=== PATIENT | female | born 1945 | race Caucasian/White ===

== ENCOUNTER 2016-08-02 09:10 | Day surgery (SDC) | payer MEDICARE, OTHER ==
[2016-08-02] VITALS (7 sets, daily range): BP systolic 140–178; BP diastolic 66–75; PULSE 63–80; RESP 14–16; O2SAT 95–98
[~2016-08-02] VITALS: Ht 154.9 cm; Wt 91.0 kg
[~2016-08-02 09:10] MED LIST: 0.9% Sodium Chloride 1,000 ML IV PRN; AMLO5TAB2 PO; BETA1CAP PO; CALCIUM PO; MAGNESIUM PO; MULT-1018 PO; OMEG-86 PO; SIMV20TA4 PO; Sodium Chloride LOK Flush 10 mL Syringe IV PRN; fentaNYL-PF 50 mCg/mL 2 mL Inj IVPUSH PRN
--- NOTE | 2016-08-02 12:38 | ENDO ---
[address] [address] ENDOSCOPY PROCEDURE PATIENT: JARROD BISHOP : 1945 MR#: [id number] ADMIT: 08/02/2016 JOB ID: [id number] DATE: 08/02/2016 PRIMARY PROVIDER: Betina Bethea DO PROCEDURE: Esophagogastroduodenoscopy with biopsies and a colonoscopy. INDICATION: A 70-year-old female with a metallic taste in the mouth, chronic symptoms of intermittent reflux. Currently not taking any antisecretory medication. Updated upper endoscopy is pursued to evaluate for recurrence of esophagitis which was noted some 10 years ago. Last EGD in 2013 was rather unremarkable. She additionally has had a change in bowel habit with increasing tendency towards constipation and colonoscopy is therefore pursued. EQUIPMENT: GIF H 180 J and a PCF H 180 AL. SEDATION: Versed 8 mg and 125 mcg fentanyl. COMPLICATIONS: None identified. BOWEL PREPARATION: Fair at best. Copious amounts of irrigation and suction were required for today's exam. PROCEDURE INFORMATION: After the risks and benefits were explained, written and verbal informed consent was obtained. The patient was brought into the endoscopy suite and placed into the left lateral decubitus position. Sedation was achieved as above. The scope introduced into the mouth through the bite block and advanced to the second portion of the duodenum. The scope was slowly withdrawn to carefully examine the mucosa for any defects or lesions. Retroflexed views were accomplished in the stomach, the stomach was decompressed, and the scope removed the patient, who tolerated the procedure well. The patient was then turned around. A digital rectal examination accomplished. Mild internal external nonbleeding nonthrombosed hemorrhoids were noted. The scope was introduced into the rectum and advanced under direct visualization to the level of the cecum as identified by the appendiceal orifice and ileocecal valve. The scope was slowly withdrawn to carefully examine the mucosa for any defects or lesions. Multiple direct views were made through the dentate line for exclusion of pathology. The colon was decompressed and the scope removed the patient, who tolerated the procedure well. FINDINGS: 1. Duodenum: No significant mucosal pathology appreciated from the bulb through to the second portion. 2. Stomach: No outlet obstruction. No ulcers. No mass lesions. Mild diffuse gastropathy was seen throughout. Random biopsy was taken for exclusion of Helicobacter or other histopathology. Retroflexed views of the LES were otherwise unremarkable. 3. Esophagus: The squamocolumnar junction seemed to correlate with the top of the gastric folds. The GEJ was at about 40 cm from the incisors. There was perhaps a very subtle focus of inflammation right at the GEJ in the 6-7 o'clock location. This area was targeted for histopathologic analysis by a small biopsy. The remainder of the esophagus appeared unremarkable. 4. Colon: Tortuous course from rectum to cecum. I did not appreciate any significant polyps, mass lesions, or inflammatory features throughout. ENDOSCOPIC DIAGNOSES: 1. Gastropathy. 2. Subtle probable esophagitis. 3. Hemorrhoids. 4. Otherwise visually unremarkable colonoscopy. RECOMMENDATIONS: 1. Await histopathology. 2. If Helicobacter is found it will need to be eradicated with standard triple therapy. 3. The patient is encouraged to initiate the bowel regimen discussed in clinic. 4. The patient is again encouraged to trial a course of proton pump inhibitor to see if this attenuates her symptoms. 5. She will be brought back to GI Clinic to discuss her response in the next approximately six weeks or so.
--- NOTE | 2016-08-03 13:11 | PATH ---
SURGICAL PATHOLOGY Attending Physician:Roc Rooney CASE STATUS: Signed Out PATIENT NAME: JARROD BISHOP PID: [id number] : 1945 DATE COLLECTED:08/02/2016 22:20 SPECIMEN: 1: Gastric, Biopsy 2: Esophagus, Biopsy CLINICAL HISTORY: GERD, CONSTIPATION 1). GASTRIC BIOPSY, RULE OUT H.PYLORI 2). DISTAL ESOPHAGUS BIOPSY FINAL DIAGNOSIS: 1.GASTRIC BIOPSY: MUCOSAL HYPEREMIA WITHOUT ASSOCIATED SIGNIFICANT INFLAMMATION INVOLVING FUNDIC MUCOSA. Negative for evidence of Helicobacter on H&E stain. Negative for intestinal metaplasia. Negative for dysplasia and malignancy. 2.DISTAL ESOPHAGUS BIOPSY: SQUAMOUS EPITHELIUM WITH PROMINENT REACTIVE CHANGES AND SCATTERED INTRAEPITHELIAL EOSINOPHILS (CHANGES CONSISTENT WITH THOSE OF CHRONIC REFLUX). NO GASTRIC-TYPE EPITHELIUM IDENTIFIED. Negative for dysplasia and malignancy. ICD10 K21.0 GROSS DESCRIPTION: The specimen is received in two formalin filled containers labeled with the patient's name. 1). The specimen is sublabeled "gastric" and consists of a 0.2 x 0.2 x 0.2 CM portion of tissue which is entirely submitted in cassette 1A. 2). The specimen is sublabeled "distal esophagus" and consists of a 0.1 x 0.1 x 0.1 CM portion of tissue which is entirely submitted in cassette 2A. 08/02/2016 [facility] MICRO DESCRIPTION: See diagnosis. ICD-9 CODES: CPT CODES: 1: 62890 2: 43949 Electronically Signed Out Elvis Ruff MD [facility] [address], [place] [address] Technical component performed at [facility], [facility] [address], [place], [address]
== END 2016-08-02 23:59 | disposition home or self-care (01) ==
LOC: END 09:10
PROVIDERS: ATTEND Internal Medicine Gastroenterology
DX: R19.4 Change in bowel habit (principal); K64.8 Other hemorrhoids; K21.9 Gastro-esophageal reflux disease without esophagitis; K31.9 Disease of stomach and duodenum, unspecified; E78.5 Hyperlipidemia, unspecified; I45.10 Unspecified right bundle-branch block; R01.1 Cardiac murmur, unspecified; I10 Essential (primary) hypertension
CPT/HCPCS: 43239; 45378; 99153; G0500; J2250; J3010; J7030